=== PATIENT | male | born 2000 | race American Indian/Alaskan Native ===

== ENCOUNTER 2021-02-10 00:05 | Emergency (ER) | payer SELFPAY ==
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
[2021-02-10 01:08] VITALS: BP 100/59
== END 2021-02-10 01:04 | disposition home or self-care (01) ==
LOC: ED 00:05
DX: M62.830 Muscle spasm of back (principal); M54.50 Low back pain, unspecified; V89.2XXA Person injured in unspecified motor-vehicle accident, traffic, initial encounter; Y93.89 Activity, other specified; Y92.488 Other paved roadways as the place of occurrence of the external cause; Y99.8 Other external cause status
CPT/HCPCS: 99282